=== PATIENT | female | born 1935 | race Caucasian/White ===

== ENCOUNTER 2024-01-17 20:04 | Inpatient (IN) | payer OTHER ==
[~2024-01-17] VITALS: Ht 157.5 cm; Wt 70.6 kg
[2024-01-17 20:37] VITALS: BP_SYST 130; PULSE 78; RESP 18; TEMP 98.1; O2SAT 93
[2024-01-17 21:36] LABS: BASOPHILS # (AUTO) 0.1 K/uL (0.0-0.2); BASOPHILS % (AUTO) 0.7 % (0.0-2.0); EOSINOPHILS # (AUTO) 0.1 K/uL (0.0-0.4); EOSINOPHILS % (AUTO) 1.2 % (0.0-4.0); HEMATOCRIT 39.4 % (36-48); HEMOGLOBIN 13.4 g/dL (12.0-16.0); LYMPHOCYTES % (AUTO) 27.1 % (20.5-51.5); MEAN CORPUSCULAR HEMOGLOBIN 33 pg (27-31); MEAN CORPUSCULAR HGB CONC 34 % (32-36); MEAN CORPUSCULAR VOLUME 98 fL (79.0-98.0); MONOCYTES # (AUTO) 1.1 K/uL (0.0-1.0); MONOCYTES % (AUTO) 9.8 % (1.7-9.3); NEUTROPHILS # (AUTO) 6.7 K/uL (1.8-7.7); NEUTROPHILS % (AUTO) 61.2 % (40.0-70.0); PLATELET COUNT (AUTO) 228 K/uL (130-430); RED BLOOD CELL COUNT(AUTO) 4.01 MIL/uL (4.2-6.2); RED CELL DISTRIBUTION WIDTH 13.1 % (9.0-15.0); WHITE BLOOD COUNT (AUTO) 10.9 K/uL (4.8-10.8)
[2024-01-17 21:46] LABS: PROTHROMBIN TIME 9.9 SECS (9.5-12.5)
[2024-01-17 21:57] LABS: ALANINE AMINOTRANSFERASE 31 U/L (12-78); ALBUMIN 3.5 g/dL (3.4-4.8); ANION GAP 11 (5-15); ASPARTATE AMINOTRANSFERASE 23 U/L (10-37); CALCIUM 8.7 mg/dL (8.4-11.0); CARBON DIOXIDE 26 mmol/L (23-29); CHLORIDE 105 mmol/L (98-107); CREATININE 0.76 mg/dL (0.55-1.30); GLUCOSE 114 mg/dL (74-106); POTASSIUM 3.7 mmol/L (3.5-5.1); SODIUM SERUM 142 mmol/L (136-145); TOTAL BILIRUBIN 0.7 mg/dL (0.0-1.0); TOTAL PROTEIN, SERUM 7.3 g/dL (6.4-8.3); UREA NITROGEN, BLOOD 11 mg/dL (8-21)
[2024-01-17 22:18] LABS: AMYLASE 37 U/L (0-100); BILIRUBIN,DIRECT 0.2 mg/dL (0.0-0.3); LACTATE DEHYDROGENASE 142 U/L (81-234); LIPASE 15 U/L (16-77)
[2024-01-17] MEDS: metroNIDAZOLE 500 mg/NS 100 ML IV ONE (23:53)
[2024-01-17 23:54] LABS: BILIRUBIN,URINE NEGATIVE (NEGATIVE); CLARITY/URINE CLEAR (CLEAR); COLOR,URINE YELLOW (YELLOW); GLUCOSE,URINE NEGATIVE (NEGATIVE); KETONES,URINE NEGATIVE (NEGATIVE); LEUKOCYTE ESTERASE ,URINE TRACE (NEGATIVE); NITRITE, URINE POSITIVE (NEGATIVE); PROTEIN URINE NEGATIVE (NEGATIVE); UROBILINOGEN,URINE 0.2 (0.2-1.0)
[2024-01-17 23:59] LABS: BLOOD, URINE TRACE (NEGATIVE)
[2024-01-18] MEDS ORDERED: ONDANSETRON HCL 4 MG/2 ML VIAL IVP PRN (00:15)
[2024-01-18 00:25] LABS: BACTERIA,URINE MANY /HPF (None Seen)
[2024-01-18] MEDS ORDERED: MECL-225 PO (00:31)
[2024-01-18] MEDS ORDERED: LEVO75TA7 PO (00:31)
[2024-01-18] MEDS ORDERED: ESCI20TA38 PO (00:31)
[2024-01-18] MEDS ORDERED: EZET10TA30 PO (00:31)
[2024-01-18] MEDS: CIPROFLOXACIN LACT 400 MG/D5W 200 ML IV SCH (00:35)
[2024-01-18 01:42] VITALS: BP_SYST 144; PULSE 68; RESP 18; TEMP 98.4; O2SAT 98
[2024-01-18] MEDS: NACL 0.9% 1,000 ML IV ONE (02:06)
[2024-01-18] MEDS: MORPHINE 2 MG/ML INJ. SYRINGE IVP PRN (02:08)
[2024-01-18] MEDS ORDERED: ACETAMINOPHEN 325 MG TABLET PO PRN (07:30)
[2024-01-18 08:00] VITALS: BP_SYST 122; PULSE 75; RESP 18; TEMP 97.5; O2SAT 94
[2024-01-18] MEDS: LEVOTHYROXINE SODIUM 0.075 MG TABLET PO ONE (08:36)
[2024-01-18] MEDS: NACL 0.9% 1,000 ML IV SCH (08:36)
[2024-01-18] MEDS: LOSARTAN POTASSIUM 50 MG TABLET (COZAAR) PO SCH (08:38)
[2024-01-18] MEDS: metroNIDAZOLE 500 mg/NS 100 ML IV ONE (08:38)
[2024-01-18] MEDS: CITALOPRAM HYDROBROMIDE 20 MG TABLET PO SCH (08:39)
[2024-01-18] MEDS: HEPARIN SODIUM,PORCINE 5,000 UNITS/ML VIAL SUBCUT SCH (08:43)
[2024-01-18] MEDS ORDERED: ESCITALOPRAM OXALATE 10 MG TABLET PO SCH (09:00)
[2024-01-18] MEDS: CEFEPIME 2 GM in D5W 100 ML IV SCH (10:24)
[2024-01-18 10:39] LABS: BASOPHILS # (AUTO) 0.1 K/uL (0.0-0.2); BASOPHILS % (AUTO) 0.7 % (0.0-2.0); EOSINOPHILS # (AUTO) 0.1 K/uL (0.0-0.4); EOSINOPHILS % (AUTO) 1.2 % (0.0-4.0); HEMATOCRIT 35.5 % (36-48); HEMOGLOBIN 12.1 g/dL (12.0-16.0); LYMPHOCYTES # (AUTO) 2.3 K/uL (1.0-5.5); LYMPHOCYTES % (AUTO) 25.1 % (20.5-51.5); MEAN CORPUSCULAR HEMOGLOBIN 34 pg (27-31); MEAN CORPUSCULAR HGB CONC 34 % (32-36); MEAN CORPUSCULAR VOLUME 99 fL (79.0-98.0); NEUTROPHILS # (AUTO) 5.7 K/uL (1.8-7.7); PLATELET COUNT (AUTO) 203 K/uL (130-430); RED BLOOD CELL COUNT(AUTO) 3.57 MIL/uL (4.2-6.2); RED CELL DISTRIBUTION WIDTH 13.1 % (9.0-15.0); WHITE BLOOD COUNT (AUTO) 9.1 K/uL (4.8-10.8)
[2024-01-18 10:50] LABS: ANION GAP 6 (5-15); CARBON DIOXIDE 27 mmol/L (23-29); CHLORIDE 107 mmol/L (98-107); CREATININE 0.74 mg/dL (0.55-1.30); GLUCOSE 149 mg/dL (74-106); POTASSIUM 3.5 mmol/L (3.5-5.1); SODIUM SERUM 140 mmol/L (136-145); UREA NITROGEN, BLOOD 9 mg/dL (8-21)
[2024-01-18 11:17] VITALS: BP_SYST 98; PULSE 71; RESP 16; TEMP 97.2; O2SAT 92
[2024-01-18] MEDS: metroNIDAZOLE 500 mg/NS 100 ML IV SCH (13:08)
[2024-01-18 15:15] VITALS: BP_SYST 95; PULSE 68; RESP 15; TEMP 98.1; O2SAT 100
[2024-01-18 19:00] VITALS: BP_SYST 103; PULSE 72; RESP 16; TEMP 98.2; O2SAT 98
[2024-01-18 20:00] VITALS: BP_SYST 103; PULSE 72; RESP 16; TEMP 98.2; O2SAT 98
[2024-01-19 02:22] VITALS: BP_SYST 115; PULSE 68; RESP 18; TEMP 97.4; O2SAT 98
[2024-01-19] MEDS: LEVOTHYROXINE SODIUM 0.075 MG TABLET PO SCH (06:13)
[2024-01-19 06:14] LABS: BASOPHILS # (AUTO) 0.1 K/uL (0.0-0.2); BASOPHILS % (AUTO) 0.8 % (0.0-2.0); EOSINOPHILS # (AUTO) 0.2 K/uL (0.0-0.4); EOSINOPHILS % (AUTO) 2.8 % (0.0-4.0); HEMATOCRIT 34.3 % (36-48); HEMOGLOBIN 11.7 g/dL (12.0-16.0); LYMPHOCYTES # (AUTO) 2.6 K/uL (1.0-5.5); MEAN CORPUSCULAR HEMOGLOBIN 34 pg (27-31); MEAN CORPUSCULAR HGB CONC 34 % (32-36); MEAN CORPUSCULAR VOLUME 99 fL (79.0-98.0); MONOCYTES # (AUTO) 0.8 K/uL (0.0-1.0); MONOCYTES % (AUTO) 10.8 % (1.7-9.3); NEUTROPHILS # (AUTO) 4.1 K/uL (1.8-7.7); NEUTROPHILS % (AUTO) 52.6 % (40.0-70.0); PLATELET COUNT (AUTO) 195 K/uL (130-430); RED BLOOD CELL COUNT(AUTO) 3.48 MIL/uL (4.2-6.2); RED CELL DISTRIBUTION WIDTH 12.9 % (9.0-15.0); WHITE BLOOD COUNT (AUTO) 7.8 K/uL (4.8-10.8)
[2024-01-19 06:28] LABS: ANION GAP 6 (5-15); CARBON DIOXIDE 27 mmol/L (23-29); CHLORIDE 109 mmol/L (98-107); CREATININE 0.74 mg/dL (0.55-1.30); GLUCOSE 101 mg/dL (74-106); POTASSIUM 3.4 mmol/L (3.5-5.1); SODIUM SERUM 142 mmol/L (136-145); UREA NITROGEN, BLOOD 9 mg/dL (8-21)
[2024-01-19 08:00] VITALS: BP_SYST 114; PULSE 66; RESP 18; TEMP 98.4; O2SAT 96; O2SAT 99
[2024-01-19] MEDS: MORPHINE 2 MG/ML INJ. SYRINGE IVP PRN (08:30)
[2024-01-19] MEDS: LOSARTAN POTASSIUM 25 MG TABLET PO SCH (09:21)
[2024-01-19] MEDS: POTASSIUM CHLORIDE 20 MEQ TABLET.ER PO ONE (09:25)
[2024-01-19 11:08] VITALS: BP_SYST 105; PULSE 54; RESP 15; TEMP 97.8; O2SAT 95
[2024-01-19 15:04] VITALS: BP_SYST 109; PULSE 69; RESP 16; TEMP 97.3; O2SAT 93
[2024-01-19 20:00] VITALS: BP_SYST 126; PULSE 75; RESP 18; TEMP 97.6; O2SAT 95
[2024-01-19] MEDS: ACETAMINOPHEN 325 MG TABLET PO PRN (20:53)
[2024-01-20 01:04] VITALS: BP_SYST 116; PULSE 67; RESP 16; TEMP 97.4; O2SAT 94
[2024-01-20 04:00] VITALS: BP_SYST 129; PULSE 78; RESP 19; TEMP 97.7; O2SAT 97
[2024-01-20 06:40] LABS: BASOPHILS % (AUTO) 0.6 % (0.0-2.0); EOSINOPHILS # (AUTO) 0.2 K/uL (0.0-0.4); EOSINOPHILS % (AUTO) 3.4 % (0.0-4.0); HEMATOCRIT 34.1 % (36-48); HEMOGLOBIN 11.5 g/dL (12.0-16.0); LYMPHOCYTES # (AUTO) 2.2 K/uL (1.0-5.5); LYMPHOCYTES % (AUTO) 30.5 % (20.5-51.5); MEAN CORPUSCULAR HEMOGLOBIN 34 pg (27-31); MEAN CORPUSCULAR HGB CONC 34 % (32-36); MEAN CORPUSCULAR VOLUME 100 fL (79.0-98.0); MONOCYTES # (AUTO) 0.8 K/uL (0.0-1.0); MONOCYTES % (AUTO) 11.4 % (1.7-9.3); NEUTROPHILS % (AUTO) 54.1 % (40.0-70.0); PLATELET COUNT (AUTO) 209 K/uL (130-430); RED CELL DISTRIBUTION WIDTH 12.7 % (9.0-15.0); WHITE BLOOD COUNT (AUTO) 7.3 K/uL (4.8-10.8)
[2024-01-20 06:54] LABS: ANION GAP 7 (5-15); CARBON DIOXIDE 25 mmol/L (23-29); CHLORIDE 111 mmol/L (98-107); CREATININE 0.67 mg/dL (0.55-1.30); GLUCOSE 107 mg/dL (74-106); POTASSIUM 3.8 mmol/L (3.5-5.1); SODIUM SERUM 143 mmol/L (136-145); UREA NITROGEN, BLOOD 8 mg/dL (8-21)
[2024-01-20 08:00] VITALS: O2SAT 94
[2024-01-20 08:03] VITALS: BP_SYST 131; PULSE 65; RESP 18; TEMP 98
[2024-01-20] MEDS ORDERED: LEVO250T73 PO (11:08)
[2024-01-20] MEDS ORDERED: METR-154 PO (11:08)
[2024-01-20 11:20] VITALS: BP_SYST 132; PULSE 90; RESP 16; TEMP 98.7; O2SAT 94
[2024-01-20] MEDS: levoFLOXacin 750 MG TABLET PO ONE (12:23)
[2024-01-20 12:30] VITALS: BP_SYST 132; PULSE 90; RESP 16; TEMP 98; O2SAT 95
== END 2024-01-20 12:50 | disposition home or self-care (01) | DRG 392 ==
LOC: SED 20:04 → SMU 01-18 00:12
PROVIDERS: ADMIT Internal Medicine; ATTEND Internal Medicine
DX: K57.32 Diverticulitis of large intestine without perforation or abscess without bleeding (principal); N39.0 Urinary tract infection, site not specified; I10 Essential (primary) hypertension; E03.9 Hypothyroidism, unspecified; Z90.49 Acquired absence of other specified parts of digestive tract; Z79.899 Other long term (current) drug therapy
CPT/HCPCS: 36415; 80048; 80076; 81000; 81001; 81015; 82150; 83605; 83615; 83690; 83735; 84484; 85025; 85610; 85730; 87040; 87086; 87186; 93005; 96365; 99285; J0692; J0744; J1644; J2270; J3490; J7060

== ENCOUNTER 2024-05-22 14:54 | Emergency (ER) | payer OTHER ==
[~2024-05-22] VITALS: Ht 160 cm; Wt 71.7 kg
[~2024-05-22 14:54] MED LIST: ESCI20TA38 PO; EZET10TA30 PO; LEVO250T73 PO; LEVO75TA7 PO; MECL-225 PO; METR-154 PO
[2024-05-22 15:14] VITALS: BP_SYST 133; PULSE 74; RESP 18; TEMP 97.8; O2SAT 93
[2024-05-22 15:53] LABS: BASOPHILS # (AUTO) 0.1 K/uL (0.0-0.2); BASOPHILS % (AUTO) 0.9 % (0.0-2.0); EOSINOPHILS # (AUTO) 0.2 K/uL (0.0-0.4); EOSINOPHILS % (AUTO) 1.9 % (0.0-4.0); HEMATOCRIT 40.3 % (36-48); HEMOGLOBIN 13.8 g/dL (12.0-16.0); LYMPHOCYTES # (AUTO) 3.2 K/uL (1.0-5.5); LYMPHOCYTES % (AUTO) 39.4 % (20.5-51.5); MEAN CORPUSCULAR HEMOGLOBIN 34 pg (27-31); MEAN CORPUSCULAR HGB CONC 34 % (32-36); MEAN CORPUSCULAR VOLUME 100 fL (79.0-98.0); MONOCYTES # (AUTO) 0.7 K/uL (0.0-1.0); NEUTROPHILS % (AUTO) 48.8 % (40.0-70.0); PLATELET COUNT (AUTO) 233 K/uL (130-430); RED BLOOD CELL COUNT(AUTO) 4.02 MIL/uL (4.2-6.2); WHITE BLOOD COUNT (AUTO) 8.2 K/uL (4.8-10.8)
[2024-05-22 16:29] LABS: ALANINE AMINOTRANSFERASE 30 U/L (12-78); ALBUMIN 3.8 g/dL (3.4-4.8); ANION GAP 8 (5-15); ASPARTATE AMINOTRANSFERASE 24 U/L (10-37); BILIRUBIN,DIRECT 0.1 mg/dL (0.0-0.3); CALCIUM 9.4 mg/dL (8.4-11.0); CARBON DIOXIDE 30 mmol/L (23-29); CHLORIDE 105 mmol/L (98-107); CREATININE 0.85 mg/dL (0.55-1.30); GLUCOSE 100 mg/dL (74-106); LIPASE 16 U/L (16-77); POTASSIUM 3.6 mmol/L (3.5-5.1); SODIUM SERUM 143 mmol/L (136-145); TOTAL BILIRUBIN 0.4 mg/dL (0.0-1.0); TOTAL PROTEIN, SERUM 7.1 g/dL (6.4-8.3); UREA NITROGEN, BLOOD 16 mg/dL (8-21)
[2024-05-22] MEDS ORDERED: ACET-2634 PO (17:50)
[2024-05-22] MEDS ORDERED: IBUP-1969 PO (17:50)
[2024-05-22 18:07] LABS: BILIRUBIN,URINE NEGATIVE (NEGATIVE); BLOOD, URINE NEGATIVE (NEGATIVE); CLARITY/URINE CLEAR (CLEAR); COLOR,URINE YELLOW (YELLOW); GLUCOSE,URINE NEGATIVE (NEGATIVE); KETONES,URINE NEGATIVE (NEGATIVE); LEUKOCYTE ESTERASE ,URINE 2+ (NEGATIVE); NITRITE, URINE NEGATIVE (NEGATIVE); PROTEIN URINE NEGATIVE (NEGATIVE); UROBILINOGEN,URINE 0.2 (0.2-1.0)
[2024-05-22 18:28] LABS: RBC,URINE >100 /HPF (0-3)
[2024-05-22 18:29] LABS: BACTERIA,URINE FEW /HPF (None Seen)
[2024-05-22] MEDS ORDERED: NITR-85 PO (19:16)
[2024-05-22 19:38] VITALS: BP_SYST 133; PULSE 74; RESP 18; TEMP 97.8; O2SAT 93
== END 2024-05-22 19:26 | disposition home or self-care (01) ==
LOC: SED 14:54
DX: N39.0 Urinary tract infection, site not specified (principal); R10.32 Left lower quadrant pain; R19.7 Diarrhea, unspecified; Z90.49 Acquired absence of other specified parts of digestive tract; Z90.710 Acquired absence of both cervix and uterus; Z98.890 Other specified postprocedural states; Z88.5 Allergy status to narcotic agent; Z79.899 Other long term (current) drug therapy; Z79.2 Long term (current) use of antibiotics
CPT/HCPCS: 36415; 80048; 80076; 81000; 81001; 81015; 83690; 85025; 87086; 99284